=== PATIENT | female | born 1960 | race Caucasian/White ===

== ENCOUNTER 2018-08-25 10:27 | Outpatient (CLI) | payer BC, SELFPAY ==
[2018-08-25 15:27] LABS: Absolute Basophil Count 0.02 k/cumm (0.0-0.2); Absolute Eosinophil Count 0.03 k/cumm (0.0-0.7); Absolute Lymphocyte Count 1.69 k/cumm (1.2-3.4); Absolute Neutrophil Count 2.99 k/cumm (1.2-6.7); Basophils % 0.4; Eosinophils % 0.6; HCT 39.3 % (36.0-46.0); HGB 13.2 g/dL (12.0-15.5); Lymphocytes % 32.9; Mean Corp. HGB Concentration 33.6 g/dL (32.0-36.0); Mean Corpuscular Hemoglobin 30.5 pg (27.0-33.0); Mean Corpuscular Volume 90.8 fL (80-95); Mean Platelet Volume 10.5 fL (8.0-11.0); Monocytes % 7.8; Neutrophils % 58.3; Platelet Count 281 x1000/uL (130-400); RBC 4.33 m/cumm (4.00-5.20); RBC Distribution Width 12.9 % (11.7-14.6); White Blood Cell Count 5.13 k/cumm (4.4-10.8)
[2018-08-25 16:17] LABS: ALT 21 U/L (12-78); AST 13 U/L (15-37); Albumin 4.2 g/dL (3.4-5.0); Alkaline Phosphatase 55 U/L (46-116); Anion Gap 8.6 mmol/L (3-11); BUN 12 mg/dL (7-18); Bilirubin, Total 0.7 mg/dL (0.2-1.0); CO2 29.4 mmol/L (21.0-32.0); CREATININE 0.67 mg/dL (0.55-1.02); Calcium 9.2 mg/dL (8.5-10.1); Chloride 101 mmol/L (98-107); Cholesterol 186 mg/dL (50-200); Glucose 90 mg/dL (70-100); HDL Cholesterol 92 mg/dL (40-60); LDL CHOLESTEROL 91 mg/dL (<100); Potassium 4.5 mmol/L (3.5-5.1); Sodium 139 mmol/L (136-145); TSH 0.07 uIU/mL (0.358-3.74); Total Protein 7.3 g/dL (6.4-8.2); Triglyceride 49 mg/dL (30-150)
[2018-08-25 21:20] LABS: T3,Free 3.4 pg/ml (2.8-5.3)
== END 2018-08-25 10:47 ==
PROVIDERS: PCP Family Medicine; Visit Provider Family Medicine
DX: Z00.00 Encounter for general adult medical examination without abnormal findings (principal); Z13.220 Encounter for screening for lipoid disorders; R10.31 Right lower quadrant pain; E03.9 Hypothyroidism, unspecified
CPT/HCPCS: 36415; 80053; 80061; 83721; 84443; 84481; 85025

== ENCOUNTER 2020-04-19 07:54 | Outpatient (CLI) | payer BC, SELFPAY ==
[2020-04-20 16:03] LABS: COVID-19 RT-PCR UVMMC Result Negative (Negative)
== END 2020-04-19 08:14 ==
PROVIDERS: PCP Family Medicine; Visit Provider Family Medicine
DX: R11.0 Nausea (principal); Z11.59 Encounter for screening for other viral diseases
CPT/HCPCS: U0003

== ENCOUNTER 2021-03-23 16:18 | Outpatient (REF) | payer BC, SELFPAY ==
--- NOTE | 2021-03-23 15:00 | PAPFT_PTH ---
PATIENT: Vee Croft LOC: [facility] U#:[id number] AGE/SX: 60/F ROOM: RE03/23/[address]: Amy Lindsay : 1960 BED: DIS: 03/23/2021 SPEC #: [id number] RECD: 03/23/21 17:40 STATUS: SHAWN BUCHANAN #: [id number] TARA: 03/23/21 15:[address]: Amy Lindsay DEPT: [facility] Cytology RECD BY: Audelia Valdez ENTERED: 03/23/21 17:41 SP TYPE: PAPFT OTHR DR: Live Pérez MD Tissues: 1 - CX/ENDOCX FOR PAP SMEARS Procedures: PAP THIN PREP/[facility] Screening HPV DNA PROBE Comments: [id number]
== END 2021-03-23 16:19 | disposition home or self-care (01) ==
LOC: LBN 16:18
PROVIDERS: PCP Family Medicine; Visit Provider Obstetrics & Gynecology Gynecology
DX: Z12.4 Encounter for screening for malignant neoplasm of cervix (principal); Z11.51 Encounter for screening for human papillomavirus (HPV)
CPT/HCPCS: 88142; 87624

== ENCOUNTER 2021-03-27 04:45 | Outpatient (CLI) | payer BC, SELFPAY ==
[2021-03-27 13:05] LABS: TSH (W/Ref FT4) 0.02 uIU/mL (0.36-3.74)
[2021-03-27 13:31] LABS: FREE T4 1.57 ng/dL (0.76-1.46)
== END 2021-03-27 04:46 | disposition home or self-care (01) ==
LOC: LBO 04:45
PROVIDERS: PCP Family Medicine; Visit Provider Obstetrics & Gynecology Gynecology
DX: E03.9 Hypothyroidism, unspecified (principal)
CPT/HCPCS: 36415; 84439; 84443; 84481

== ENCOUNTER 2022-02-19 02:05 | Outpatient (CLI) | payer BC, SELFPAY ==
[2022-02-19 12:11] LABS: TSH (W/Ref FT4) 0.03 uIU/mL (0.36-3.74)
[2022-02-19 12:32] LABS: FREE T4 1.41 ng/dL (0.76-1.46)
[2022-02-19 22:08] LABS: T3,Free 3.5 pg/mL (2.8-5.3)
== END 2022-02-19 02:06 | disposition home or self-care (01) ==
LOC: LBO 02:05
PROVIDERS: PCP Family Medicine; Visit Provider Family Medicine
DX: E03.9 Hypothyroidism, unspecified (principal)
CPT/HCPCS: 36415; 84439; 84443; 84481

== ENCOUNTER → 2022-04-27 00:43 | Outpatient (CLI) | payer BC, SELFPAY ==
--- NOTE | 2022-04-27 08:45 | DI.DEXA_ITS ---
Exam(s) XR DEXA BONE DENSITY W/WO ROBINSON EXAM: XR DEXA BONE DENSITY W/WO ROBINSON CLINICAL HISTORY: screening for osteoporosis in postmenopausal woman,z78.0,e03.9 TECHNIQUE: [employer] C densitometer analysis of left hip, lumbar spine and left forearm. COMPARISON: No exams were available for comparison FINDINGS: Lateral view of the thoracic and lumbar spine shows no evidence of compression fractures. Bone mineral density measurements of the lumbar spine correspond to a total T-score of -0.6, in the normal range. Bone mineral density measurements of the left hip correspond to a total T-score of -1.8. The femora l neck T-score is -2.2, consistent with osteopenia.. The right forearm bone mineral density measurements correspond to a T-score of the distal 3rd of -2. 3, in the osteopenic range.. IMPRESSION: Normal bone mineral density of the lumbar spine. Osteopenia of the right forearm and left hip.
== END ==
PROVIDERS: PCP Family Medicine; Visit Provider Obstetrics & Gynecology Gynecology
DX: E03.9 Hypothyroidism, unspecified (principal); Z78.0 Asymptomatic menopausal state; Z13.820 Encounter for screening for osteoporosis; M85.89 Other specified disorders of bone density and structure, multiple sites
CPT/HCPCS: 77080